=== PATIENT | female | born 1975 | race Caucasian/White ===

== ENCOUNTER 2020-10-26 10:33 | Emergency (ER) | payer SELFPAY ==
[2020-10-26 10:46] VITALS: RESP 18; BMI 22.6
[2020-10-26 10:52] VITALS: RESP 18
[2020-10-26] MEDS: fluconazole 100 mg Tablet 150 MG PO (11:37)
[2020-10-26] MEDS: azithromycin 250 mg Tablet 1000 MG PO (11:37)
[2020-10-26] MEDS: ondansetron 4 MG Tablet PO (11:37)
[2020-10-26] MEDS: HYDROcodone-acetaminophen 5-325 mg Tablet 1 TAB PO (11:37)
[2020-10-26] MEDS: cefTRIAXone 1,000 MG in lidocaine 1% 2.1 ML 1 MG IM (11:38)
[2020-10-26] MEDS: metroNIDAZOLE 500 MG Tablet 2000 MG PO (11:38)
--- NOTE | 2020-10-26 11:45 | ED_ITS ---
HPI - Female Genitourinary General: Chief complaint: Urogenital-Female Stated complaint: Vaginal Pain Time Seen by Provider: 10/26/20 10:35 Source: patient History of Present Illness: HPI Narrative: Patient states that she has had vag inal discharge and pain x1 day. She states that she was stuck on an airplane and in an airport for a couple days flying back and forth to [place]. She states that she has had pain since then. Has white discharge. Denies concern for STDs. Denies history of STDs. Denies fever. MD elicited complaint: vaginal discharge and genital rash Associated symptoms: Reports vaginal discharge; Deny abdominal pain or nausea Date of Last Menstrual Period: 10/22/20 Review of Systems Const: Denies: fever(s) or chills Eyes: Denies: change in vision ENMT: Denies: throat pain Card: Denies: chest pain Resp: Denies: dyspnea GI: Denies: abdominal pain, nausea or vomiting : Reports: dysuria, vaginal odor and vaginal discharge [facility] ED Female Reproductive History: Date of last menstrual period: 10/22/20 Physical Exam Const: COMMON NORMALS: no acute distress, average body habitus, patient oriented x3, no limitations, healthy appearing, alert and well nourished HENMT: COMMON NORMALS: normocephalic, atraumatic, hearing grossly normal bilaterally, external ears normal, EAC's normal, TM's normal bilaterally, Normal external nose present, Normal nasal mucous membranes and turbinates present, moist oral mucous membranes, oropharynx normal, dentition normal and gingiva normal HEAD & SCALP: normocephalic and atraumatic NOSE: Normal external nose present and Normal nasal mucous membranes and turbinates present EXTERNAL EAR: Yes external ears normal EXTERNAL AUDITORY CANAL: EAC's normal TYMPANIC MEMBRANE: TM's normal bilaterally Neck/C-Spine: COMMON NORMALS: full ROM, no lymphadenopathy, supple, no meningeal signs, Thyroid normal and No carotid bruits THYROID: Thyroid normal Chest: COMMONS NORMALS: normal inspection of the chest, normal palpation of entire chest wall, normal inspection of the breasts and normal palpation of the breasts Breast/axilla inspection: Yes normal inspection of the breasts BREAST/AXILLA PALPATION: Yes normal palpation of the breasts Resp: COMMON NORMALS: normal respiratory effort, No retractions, No use of accessory muscles, clear to auscultation bilaterally and percussion normal AUSCULTATION: clear to auscultation bilaterally PERCUSSION: percussion normal GI: COMMON NORMALS: Normal to inspection, nondistended, normoactive bowel sounds present, Soft to palpation, non-tender, No hepatosplenomegaly present, no masses and no bruits PALPATION: Yes Soft to palpation and Yes No hepatosplenomegaly present : SPECULUM EXAM - VAGINA: Yes erythematous, Yes tenderness and Yes Vaginal discharge present BIMANUAL EXAM - VAGINA & UTERUS: Yes cervical motion tenderness Neuro: COMMON NORMALS: patient oriented x3 SENSORIUM/ORIENTATION: Yes alert MENINGEAL SIGNS: Yes no meningeal signs Course Vital Signs: Vital signs: Vital Signs Respiratory Rate 18 10/26/20 10:52 MDM - Female MDM Narrative: Medical decision making narrative: Patient with a significant amount of vaginal tenderness and white vaginal discharge. Has excoriated skin on the outside of the vagina. No obvious abscess noted. Patient not tolerating thorough internal exam due to pain. Patient denies any concerns for STDs. States that she does not use tampons. Patient always has infection, either bacterial and/or yeast. We will go and treat for both at this time. Culture sent. Given IM Rocephin and azithromycin here. Given Flagyl and Diflucan. Will discharge patient home with doxycycline and Diflucan as well as pain medicine. Discharge Plan Discharge Patient Disposition: Home Clinical Impression: Vaginitis Qualifiers: Chronicity: acute Qualified Code(s): N76.0 - Acute vaginitis Condition: Stable Prescriptions: New fluconazole [Diflucan] 150 mg tablet 150 mg PO Q3D Qty: 2 RF: 0 doxycycline hyclate 100 mg capsule 100 mg PO BID 10 Days Qty: 20 RF: 0 hydrocodone-acetaminophen 5-325 mg tablet 1 tab PO Q6H Qty: 20 RF: 0 nystatin 100,000 unit/gram ointment 1 applic topical BID Qty: 30 RF: 0 No Action Tylenol Extra Strength 500 mg Tablet 1,000 mg PO PRN RF: 0 Discharge Orders: Discharge ED (Routine); Ordered 10/26/20 Ordered By: Gabe Hitchcock Discharge Diet: Usual diet Discharge Activity: Resume usual activity Coding Level of Care Code ED Bmx Rider for Chg Fwgeovanna
[2020-10-26 12:00] VITALS: RESP 18
== END 2020-10-26 12:00 | disposition home or self-care (01) ==
PROVIDERS: Emergency Provider Emergency Medicine
DX: N76.0 Acute vaginitis (principal)
CPT/HCPCS: 12345; 87070; 87077; 87186; 87205; 87210; 87491; 87591; 96372; 99281; 99283; J0696; Q0144; Q0162